=== PATIENT | female | born 1965 | race Caucasian/White ===

== ENCOUNTER 2016-12-18 11:37 | Emergency (ER) | payer OTHER ==
[~2016-12-18] VITALS: Ht 160 cm; Wt 52.2 kg
[2016-12-18 11:43] VITALS: BP 121/83
[2016-12-18 11:50] VITALS: BP 121/83
--- NOTE | 2016-12-18 11:50 | NUR ---
PATIENT PRESENTS TO ED WITH PT PRESENTS TO ER W/C/O LBP THAT RADIATES DOWN RIGHT LEG. HX SCIATICA, HYPOKALEMIA. PT STATES SHE WAS RECENTLY SEEN IN ER FOR UTI AND IS CURRENTLY ON ABX, DENIES N/V/D; SKIN IS PINK/WARM/DRY; AAOX4 WITH EVEN AND STEADY GAIT; LUNGS CLEAR BL; HR EVEN AND REGULAR; PT DENIES ANY FEVER, CP, SOB, OR COUGH AT THIS TIME; PATIENT STATES PAIN OF 8/10 AT THIS TIME; VSS; PATIENT POSITIONED FOR COMFORT; HOB ELEVATED; BEDRAILS UP X2; BED DOWN. ER MD MADE AWARE OF PT STATUS.
--- NOTE | 2016-12-18 11:51 | NUR ---
PATIENT TO ER BED 2.
--- NOTE | 2016-12-18 11:58 | NUR ---
Patient being evaluated by physician at bedside.
[2016-12-18] MEDS ORDERED: DEXAMETHASONE 10 MG/ML VIAL IM ONE (12:00)
[2016-12-18] MEDS ORDERED: ONDANSETRON 4 MG ODT PO ONE (12:00)
--- NOTE | 2016-12-18 12:00 | NUR ---
PATIENT ELOPED FROM FACILITY. DISCHARGE INSTRUCTIONS NOT GIVEN TO PATIENT. DR. WOO NOTIFIED.
--- NOTE | 2016-12-18 12:02 | NUR ---
UNABLE TO ADMIN MEDS DUE TO PT ELOPED FROM FACILITY
== END 2016-12-18 12:00 | disposition left against medical advice (07) ==
LOC: MED 11:37
DX: M54.41 Lumbago with sciatica, right side (principal); I10 Essential (primary) hypertension; Z88.1 Allergy status to other antibiotic agents; F17.200 Nicotine dependence, unspecified, uncomplicated; Z71.6 Tobacco abuse counseling
CPT/HCPCS: 99281